=== PATIENT | female | born 1985 | race Caucasian/White ===

== ENCOUNTER 2017-10-22 11:44 | Emergency (ER) | payer MEDICAID ==
[~2017-10-22] VITALS: Ht 188 cm; Wt 126.1 kg
[2017-10-22 11:47] VITALS: BP 183/117; Ht 188 cm; Wt 126.1 kg
== END 2017-10-22 13:07 | disposition home or self-care (01) ==
LOC: ED 11:44
DX: S41.112A Laceration without foreign body of left upper arm, initial encounter (principal); I10 Essential (primary) hypertension; X58.XXXA Exposure to other specified factors, initial encounter; Y93.89 Activity, other specified; Y92.89 Other specified places as the place of occurrence of the external cause; Y99.8 Other external cause status
CPT/HCPCS: J2001

== ENCOUNTER 2017-10-26 17:31 | Emergency (ER) | payer MEDICAID ==
[~2017-10-26] VITALS: Ht 188 cm; Wt 123.4 kg
[2017-10-26 17:58] VITALS: Ht 188 cm; Wt 123.4 kg
[2017-10-26 19:21] VITALS: BP 116/74
== END 2017-10-26 19:21 | disposition home or self-care (01) ==
LOC: ED 17:31
DX: S41.112D Laceration without foreign body of left upper arm, subsequent encounter (principal); X58.XXXD Exposure to other specified factors, subsequent encounter

== ENCOUNTER 2018-05-16 23:32 | Emergency (ER) | payer MEDICAID ==
[~2018-05-16] VITALS: Ht 188 cm; Wt 85.7 kg
[2018-05-16 23:41] VITALS: Ht 188 cm; Wt 85.7 kg
[2018-05-17 01:06] VITALS: BP 128/101
== END 2018-05-17 01:06 | disposition home or self-care (01) ==
LOC: ED 23:32
DX: S92.332A Displaced fracture of third metatarsal bone, left foot, initial encounter for closed fracture (principal); S92.242A Displaced fracture of medial cuneiform of left foot, initial encounter for closed fracture; X58.XXXA Exposure to other specified factors, initial encounter; Y93.89 Activity, other specified; Y92.89 Other specified places as the place of occurrence of the external cause; Y99.8 Other external cause status
CPT/HCPCS: J1885; Q0092